=== PATIENT | male | born 1965 | race Caucasian/White ===

== ENCOUNTER 2017-09-02 14:14 | Inpatient (IN) | payer MEDICARE ==
[~2017-09-02 14:14] MED LIST: ISOVUE-370 76%-LOCM 1 ML ONE
[2017-09-02] MEDS ORDERED: Fentanyl 100 MCG/2 ML VIAL ONE (14:48)
[2017-09-02] MEDS ORDERED: Ondansetron ODT 4 MG TAB ONE (14:48)
[2017-09-02] MEDS ORDERED: Lidocaine 2% Viscous Solution 20 ML, Aluminum & Magnesium Hydroxide 30 ML, Donnatal Eli... SSW SCH (15:15)
[2017-09-02 15:34] LABS: Troponin I 0.023 ng/mL (< 0.028)
--- NOTE | 2017-09-02 16:52 | CT ---
CT ANGIO OF CHEST PERFORMED WITH INTRAVENOUS CONTRAST ENHANCEMENT WITH 3D RECONSTRUCTIONS: 09/02/17 HISTORY: Chest pain since 3 this morning. Elevated troponin. History of hypertension. COMPARISON: 03/01/16 study. Lungs show some linear change in both bases consistent with some atelectasis. No pulmonary nodules or pleural effusions. No significant mediastinal or hilar adenopathy. The thoracic aorta is normal in caliber. There are co ronary artery calcifications seen. There is fair pulmonary artery opacification. Small peripheral emboli are not excluded on the basis o f this exam but no CT evidence for pulmonary embolus. The visualized liver parenchyma has a slightly nodular appearance suggesting cirrhotic change and mat ws diffuse fatty changes. The spleen is within normal limits. Gallstones are noted within a mildly di stended gallbladder. Renal cysts are noted. There is one partially visualized lesion involving the mid pole region of the right kidney. It has CT Hounsfield unit numbers that are higher than typical for a cyst at 37 Hounsfield units and measures 3.5 cm in size. However, in reviewing an 12/23/15 study, it is a stable size as compared to that stud y and probably represents a cyst with debris. IMPRESSION: 1. No CT evidence for pulmonary embolus. 2. Linear atelectasis in the lung bases. 3. Fatty changes of a cirrhotic liver. 4. Mildly distended gallbladder with gallstones. POS: MARY KATE
[2017-09-02] MEDS ORDERED: Pantoprazole 40 MG VIAL ONE (18:19)
[2017-09-02] MEDS ORDERED: Promethazine HCl 25 MG/ML VIAL ONE (18:19)
--- NOTE | 2017-09-02 18:25 | ULT ---
RIGHT UPPER QUADRANT ULTRASOUND 09/02/17 HISTORY: Chest pain. COMPARISON: 03/02/16. FINDINGS: The liver is enlarged measuring 18.3 cm in length. The liver demonstrates diffuse increased echogenic ity most likely attributable to diffuse fatty infiltration. This does limit evaluation of the hepatic parenchyma. There is echogenic material seen dependently within the gallbladder lumen probably related to small a mount of gallbladder sludge. Echogenic material with posterior shadowing is also present likely relat ed to calculi within the region of gallbladder sludge. The common duct is not definitively visualized . The pancreas is completely obscured by bowel gas. The right kidney is not well imaged on this examination. However, there are two separate anechoic str uctures seen within the right kidney, largest in the superior pole also noted on prior ultrasound exa mination demonstrating characteristics most compatible with a renal cyst measuring 8.1 cm. There is a n additional cystic lesion at the mid portion of the right kidney which cannot be characterized as a simple cyst and measures 4.5 cm in maximal dimensions. This cystic structure has internal echogenic m aterial and suggestion of septations. However, this cystic lesion has been stable in size when dating back to a prior study on 12/23/15 and may represent a cyst with debris. The remainder of the kidney is not well evaluated, although no hydronephrosis is appreciated. IMPRESSION: 1. Hepatomegaly with diffuse fatty infiltration of the liver. There is limited evaluation of the hepatic parenchyma. 2. Cholelithiasis and gallbladder sludge. Common duct is not well seen on this exam. 3. Superior pole right renal cyst with complicated cystic lesion in the mid portion right kidney . This may represent a cyst with debris. Although this is not consistent with a simple cyst, the size of this cystic lesion is stable compared to CTA of the abdomen on 12/23/15. However, nonemergent MRI abdomen with and without IV contrast may be helpful to further evaluate this complicated cystic lesi on. POS: MIKI
[2017-09-02] MEDS ORDERED: Lorazepam 1 MG TAB PO PRN (22:57)
[2017-09-02] MEDS ORDERED: Acetaminophen 325 MG TAB PO PRN (22:57)
[2017-09-02] MEDS ORDERED: Mag-Al 1200 mg/1200 mg/30 ML UDCUP PO PRN (22:57)
[2017-09-02] MEDS ORDERED: Senokot 8.6 MG TAB PO PRN ×2 (22:57)
[2017-09-02] MEDS ORDERED: cloNIDine 0.1 MG TAB PO PRN (22:57)
[2017-09-02] MEDS ORDERED: Bisacodyl 5 MG TAB PO PRN ×2 (22:57)
[2017-09-02] MEDS ORDERED: Lorazepam 2 MG/ML VIAL SLOW IVP PRN (22:57)
[2017-09-02] MEDS ORDERED: Ondansetron HCl/PF 4 MG/2 ML Vial IVP PRN ×2 (22:57)
[2017-09-02] MEDS ORDERED: Diabetic Tussin 200 MG/10 ML UDCUP PO PRN (22:57)
[2017-09-02] MEDS ORDERED: Loratadine 10 MG TAB PO PRN (22:57)
[2017-09-02] MEDS ORDERED: HYDROcodone/Acetaminophen 5/325 mg Tablet PO PRN (22:57)
[2017-09-02] MEDS ORDERED: Nitroglycerin 0.4 MG TAB (25 Tab Bottle) SL PRN (22:57)
[2017-09-02] MEDS ORDERED: Benzonatate 100 MG CAP PO PRN (22:57)
[2017-09-02] MEDS ORDERED: hydrALAZINE 20 MG/ML VIAL SLOW IVP PRN (22:57)
[2017-09-02] MEDS ORDERED: hydrALAZINE 25 MG TAB PO SCH (23:15)
[2017-09-02] MEDS ORDERED: Topiramate 100 MG TAB PO SCH (23:15)
[2017-09-02] MEDS: Multivitamins, Adult 10 ML, Folic Acid 1 MG, Thiamine HCl 100 MG in Dextrose 5 %-0.45 %... IV SCH (23:42)
--- NOTE | 2017-09-03 01:10 | HP ---
DATE OF ADMISSION: 09/02/2017 The patient was seen prior to midnight. PRIMARY CARE PHYSICIAN: Dr. Turpin CHIEF COMPLAINT: Abdominal pain. Please note that the patient did not have chest pain as recorded in the emergency room records. HISTORY OF PRESENT ILLNESS: Mr. Weaver reports that he has been feeling fine up until early this morning. He had a big [place] meal with his brother yesterday night prior to bed, and this morning, he was woken up at around 3:00 with sharp pain in the epigastrium, which travels around his abdomen a nd went to his back. It radiated upwards to his chest area as well. He did not have any nausea or v omiting with it. He did not have any diarrhea. He denies any fever, chills, or any other recent sym ptoms. He denies any shortness of breath. He denies any left-sided chest discomfort. He denies any arm or jaw claudication or arm paraesthesias. He denies similar symptoms in the past. He presented to the [place] emergency room with these symptoms and underwent a general workup. He was quite hypertensive over there with a blood pressure of 189/150 with a pulse of 90. He was afe brile. A 12-lead EKG done there was unremarkable. Chest x-ray was negative for any infiltrate or ed raymond. He received morphine, aspirin, transdermal nitroglycerin and morphine again and Ativan and was transferred to our facility for further workup for "chest pain." In our emergency room, he was found to have an elevated D-dimer, so underwent a CT angio of his chest . It was negative for PE. It did suggest possibility of gallstone, so he underwent abdominal ultras ound, which showed cholelithiasis as well as gallbladder sludge. He was found to be tender to right upper quadrant. He is now being admitted for further workup. The patient chews tobacco and he is al most a daily drinker of what he says is "a fifth of vodka." He drank last night before going to bed, and also this morning when he was having abdominal pain, he tried to drink, but had to stop because it made his pain worse. PAST MEDICAL HISTORY: 1. Alcohol abuse. 2. History of cerebrovascular accident in 2013. 3. History of brain aneurysm. 4. Hypertension. 5. Constipation. PAST SURGICAL HISTORY: 1. Right shoulder repair. 2. History of bilateral knee surgery. ALLERGIES: No known medication allergies. FAMILY HISTORY: Significant for diabetes in his father and multiple members with heart disease. His brother also had history of atrial fibrillation. His mother has history of coronary artery disease. SOCIAL HISTORY: He drinks on a daily basis. Sometimes he drinks more when he has money. He chews t obacco, but denies any drug abuse. CURRENT MEDICATIONS: Include hydralazine 25 mg p.o. b.i.d., Topamax 200 mg p.o. b.i.d., Flomax 0.4 m g daily, finasteride 5 mg daily, aspirin 81 mg daily, and amlodipine/benazepril 1 capsule daily. REVIEW OF SYSTEMS: A 12-point review of system is done, which is negative except for those mentioned in the history and physical. LABORATORY EXAMINATION: His CBC shows hemoglobin of 13.8, otherwise unremarkable. Neutrophils are e levated to 90% with normal WBC. D-dimer 0.60. His serum chemistries are rather unremarkable except for bicarbonate of 16 and chloride of 110. CK-MB 3.8. Troponin normal at 0.020. BNP normal at 40. His drug screen is positive for benzodiazepines and opiates, otherwise unremarkable. Plasma alcohol level is less than 10. Twelve-lead EKG, by my review, shows normal sinus rhythm without any acute S T- or T-wave changes. Chest x-ray, by my review, has no evidence to suggest infiltrate, edema, or ef fusion. CT angio is negative for pulmonary embolism. Abdominal ultrasound shows gallbladder stones and possibly sludge as well as hepatomegaly with diffuse fatty infiltration of the liver. PHYSICAL EXAMINATION: VITAL SIGNS: Most recent vital signs, temperature 99.1, pulse of 95, blood pressure of 137/94, respi rations 18, saturating 92% on room air. GENERAL EXAMINATION: The patient appears confused and somnolent, and honestly, he appears intoxicate d, but otherwise in no acute distress. He is still able to answer the questions completely and follo w simple directions, though a little bit slow with tangential thinking. HEENT EXAMINATION: Mucous membrane is slightly dry. No oropharyngeal exudate or erythema. Head is normocephalic, atraumatic. Pupils equal, reactive to light and accommodation. Extraocular movement intact. NECK: Supple without any lymphadenopathy, JVD, or bruit. CHEST: Clear to auscultation without any wheezing, rales, or rhonchi. HEART: Rate and rhythm is regular without any murmur, rubs, or gallops. ABDOMEN: Tender to palpation diffusely in the upper quadrants, left and right, and the epigastric re gion mildly as well. No rebound guarding or rigidity. It appears soft. EXTREMITIES: Free of any cyanosis, clubbing, or edema. NEUROLOGICAL EXAMINATION: Nonfocal. SKIN: Free of any rashes or bruises. Feels warm and dry to touch. PSYCHIATRIC: Normal affect. IMPRESSION AND PLAN: 1. Abdominal pain, radiating to his chest. Most likely, it is a gallbladder colic. I have ordered a stat lipase and amylase, which have turned back normal. Does not appear to be pancreatitis at this time. We will start him on a banana bag given his history of alcohol abuse and request consultation with General Surgery in the morning for possible cholecystectomy. No evidence to suggest cholecysti tis at this time, however. If necessary, we can perform a HIDA scan in the morning. He will be kept n.p.o. after breakfast in case he needs to have surgery tomorrow. At this time, continue symptomati c and supportive care. Serial cardiac enzymes are done and have been negative. He had a normal stre ss test last year in February as well. Possibility of the pain being cardiac is very low. We will co ntinue with his daily dose of aspirin for now. 2. Hypertension, currently well controlled. Restart his hydralazine as well as amlodipine and benaz epril. 3. History of seizure disorder. Resume his Topamax. 4. Alcohol abuse. We will start him on banana bag and use p.r.n. IV and oral Ativan for any withdra wal symptoms. 5. Deep venous thrombosis and gastrointestinal prophylaxis. DISPOSITION: Mr. Weaver is currently being admitted to the hospital for workup of abdominal pain. Estimated length of stay is less than 2 midnights at this time. If he does undergo surgery, he can be changed to inpatient. Further management will depend upon his clinical course.
[2017-09-03 01:19] LABS: Troponin I 0.018 ng/mL (< 0.028)
[2017-09-03 05:43] LABS: Anion Gap 9 mmol/L (10-20); BUN (Urea Nitrogen) 12 mg/dL (8.4-25.7); Calc. Creatinine Clearance 136 mL/min (70-130); Calcium 8.3 mg/dL (7.8-10.44); Carbon Dioxide 19 mmol/L (22-29); Chloride 109 mmol/L (98-107); Estimated GFR-MDRD Greater than 90; Glucose 125 mg/dL (70-105); Potassium 3.1 mmol/L (3.5-5.1); Sodium 134 mmol/L (136-145)
[2017-09-03 06:14] LABS: Band 7 % (5-11); Hemoglobin 11.9 g/dL (14.0-18.0); Lymphocytes 14 % (21-51); MDiff Complete? YES; Mean Corpuscular HGB CONC 32.9 g/dL (32.0-36.0); Mean Corpuscular Hemoglobin 28.5 pg (27.0-31.0); Mean Corpuscular Volume 86.5 fL (78.0-98.0); Mean Platelet Volume 7.5 fL (7.4-10.4); Metamyelocyte 2 % (0-0); Monocytes 12 % (0-10); Neutrophil 65 % (42-75); PLT Morphology Comment Appears Adequate; Platelet Count 154 thou/uL (130-400); RBC Distribution Width 14.4 % (11.5-14.5); Red Blood Cell (RBC) Count 4.18 mill/uL (4.70-6.10); White Blood Cell (WBC) Count 5.7 thou/uL (4.8-10.8)
[2017-09-03] MEDS: Finasteride 5 MG TAB PO SCH (09:05)
[2017-09-03] MEDS: Amlodipine 5 mg/Benazepril 10 mg CAP PO SCH (09:05)
[2017-09-03] MEDS: hydrALAZINE 25 MG TAB PO SCH ×2 (09:06→20:08)
[2017-09-03] MEDS: Topiramate 100 MG TAB PO SCH ×2 (09:06→20:08)
[2017-09-03] MEDS: Tamsulosin HCl 0.4 MG CAP PO SCH (09:06)
--- NOTE | 2017-09-03 14:22 | PDOC.PN ---
- Subjective Encounter Start Date: 09/03/17 Encounter Start Time: 12:30 -: old records requested/rev Pt seen and exmained, chart reviewed in its entirety, this is my first visit with this patient abd pain better, history rteviewed. cardiac markers negative, story more gstrointestinal, surgery consulted. No F/c, no N/V/D/C, no CP or SOB no abd pain since admit all systems reviewed and neg x as per HPI - Objective MAR Reviewed: Yes Vital Signs & Weight: Vital Signs (12 hours) Temp Pulse Resp BP BP Pulse Ox 09/03/17 11:32 97 09/03/17 11:13 98.5 F 72 16 104/75 95 09/03/17 09:06 78 114/78 09/03/17 07:30 98.9 F 86 18 09/03/17 07:25 99.3 F 78 16 95 09/03/17 06:11 94 L 09/03/17 04:40 98.9 F 86 18 110/70 90 L Weight Weight 203 lb 11.2 oz I&O: 09/02/17 09/03/17 09/04/17 06:59 06:59 06:59 Intake Total 1000 Output Total 500 Balance 500 Result Diagrams: 09/03/17 05:04 09/03/17 05:04 Radiology Reviewed by me: Yes EKG Reviewed by me: Yes Phys Exam - Physical Examination Constitutional: NAD HEENT: PERRLA, moist MMs, sclera anicteric, oral pharynx no lesions Neck: no nodes, no JVD, supple, full ROM Respiratory: no wheezing, no rales, no rhonchi, clear to auscultation bilateral Cardiovascular: RRR, no significant murmur, no rub Gastrointestinal: soft, non-tender, no distention, positive bowel sounds Musculoskeletal: no edema, pulses present Neurological: non-focal, normal sensation, moves all 4 limbs Lymphatic: no nodes Psychiatric: normal affect, A&O x 3 Skin: no rash, normal turgor, cap refill <2 seconds Dx/Plan (1) Abdominal pain Code(s): R10.9 - UNSPECIFIED ABDOMINAL PAIN Status: Acute Qualifiers: Abdominal location: epigastric Qualified Code(s): R10.13 - Epigastric pain Comment: radiates to back, cholelithiasis, surgery consulted, follow up on their findings and opinion (2) Cholelithiasis Code(s): K80.20 - CALCULUS OF GALLBLADDER W/O CHOLECYSTITIS W/O OBSTRUCTION Status: Acute Qualifiers: Cholelithiasis location: gallbladder Cholecystitis presence: without cholecystitis Biliary obstruction: without biliary obstruction Qualified Code(s): K80.20 - Calculus of gallbladder without cholecystitis without obstruction (3) HTN (hypertension) Code(s): I10 - ESSENTIAL (PRIMARY) HYPERTENSION Status: Chronic Qualifiers: Hypertension type: essential hypertension Qualified Code(s): I10 - Essential (primary) hypertension (4) ETOH abuse Code(s): F10.10 - ALCOHOL ABUSE, UNCOMPLICATED Status: Chronic - Plan cont current plan of care, out of bed/ambulate * .
[2017-09-03 14:50] LABS: ALT (SGPT) 114 U/L (8-55); AST (SGOT) 127 U/L (5-34); Albumin 3.6 g/dL (3.5-5.0); Alkaline Phosphatase 57 U/L (40-150); Bilirubin, Direct 1.1 mg/dL (0.1-0.3); Protein, Total 5.8 g/dL (6.0-8.3)
[2017-09-03] MEDS: Enoxaparin Sodium 40 MG/0.4 ML SYRINGE SC SCH (15:00)
[2017-09-03] MEDS ORDERED: Pantoprazole 40 MG VIAL IVP SCH (21:45)
[2017-09-04] MEDS: Multivitamins, Adult 10 ML, Folic Acid 1 MG, Thiamine HCl 100 MG in Dextrose 5 %-0.45 %... IV SCH (00:16)
[2017-09-04] MEDS ORDERED: CEFAZOLIN/Water 2 GM/20 ML SYRINGE SLOW IVP SCH (04:00)
--- NOTE | 2017-09-04 05:18 | CON ---
DATE OF CONSULTATION: 09/04/2017 REASON FOR CONSULTATION: Cholelithiasis and cholecystitis. HISTORY OF PRESENT ILLNESS: Mr. Weaver is a 52-year-old man who presented to the emergency room w ith epigastric pain radiating around both sides to his back. He described it as a squeezing type of pain which came on in the cheese specialist hours after he had eaten [place] food the night before. He t ried multiple different positions and activities to ease the pain, but it was persistent and severe, so he ended up coming into the hospital where he was placed under observation for rule out a cardiac disease. He had a very minimally elevated troponin in the outside ER, but multiple troponins since [facility] admission has been negative even while his pain was persistent. His pain did eventually go away a lthough he still has twinges. Other causes for his pain were investigated. An abdominal ultrasound was obtained, which showed echogenic material in the lumen consistent with sludge as well as some sha dowing felt to represent calculi. He did not have any pericholecystic fluid or wall thickening. The common duct was not able to be visualized. He had a CT angio of the chest to rule out dissection or PE. This did not show any significant problems in the lung, but he was noted to have a nodular appe arance to his liver consistent with cirrhosis and gallstones were also noted within the distended gal lbladder. PAST MEDICAL HISTORY: Fairly heavy alcohol use, which has escalated somewhat since his usp fr 9GAG. He had a stroke in 2013 and has a brain aneurysm and a seizure disorder resulting from that. He also has hypertension. PAST SURGICAL HISTORY: Bilateral shoulder repairs, tonsillectomy, and knee surgery. ALLERGIES: He has no known drug allergies. MEDICATIONS: He takes hydralazine, Topamax, Flomax, finasteride, aspirin and amlodipine/benazepril. REVIEW OF SYSTEMS: Ten-system review of systems is negative except per HPI. The patient did have so me shortness of breath and the pain was at its most severe, otherwise denies dyspnea on exertion or e xertional angina. LABORATORY DATA: White count is normal at 5.7, hematocrit 36.1, platelets 154. D-dimer was 0.6. El ectrolytes are not completely normal, but not terribly troublesome. He does have mild elevation in h is LFTs with a bilirubin of 2 with a direct component of 1.1. AST and ALT are 127 on 114. His album in is normal at 3.6. PHYSICAL EXAMINATION: VITAL SIGNS: Temperature, patient has been afebrile since his admission. Heart rate 79, respiration s 14, 92% saturated on room air, blood pressure 110/74. GENERAL: Reveals a healthy-appearing man, in no acute distress. He is not flushed or toxic in [facility]. He is not jaundiced or icteric. HEENT: Unremarkable. NECK: Supple, without lymphadenopathy or thyroid nodules. HEART: Regular in its rate and rhythm without murmurs, rubs or gallops. LUNGS: Clear to auscultation bilaterally. ABDOMEN: Soft, nontender and nondistended, although he does have slight tenderness in right upper qu adrant with Decker maneuver. No palpable masses or hernias. EXTREMITIES: Warm and well perfused without edema. NEUROLOGIC: No focal deficits. PSYCHIATRIC: Alert, oriented, and appropriate. ASSESSMENT AND PLAN: Epigastric pain, likely due to cholelithiasis and cholecystitis. This has slow ly eased off since his admission to the hospital, but he would like to undergo laparoscopic cholecyst ectomy to prevent further episodes since his bile duct was not well seen on ultrasound and his LFTs a re mildly elevated. I will plan to proceed with laparoscopic cholecystectomy with cholangiogram to e valuate for possible common duct obstruction. The procedure of laparoscopic cholecystectomy and its inherent risks were discussed in detail with the patient. These risks include but are not limited to bleeding, infection, risks of anesthesia, damage to nearby structures, need for open surgery, and ne ed for other procedures. He understands that he is at somewhat higher risk for surgery due to his re cent finding of suspected cirrhosis as well as a seizure disorder. However, his cirrhosis appears to be early and he does not have any history of coagulopathy and he definitely has gallstones which are most likely symptomatic, so I have recommended that we proceed with laparoscopic cholecystectomy lawrence pite . Antibiotics were ordered for apron operator to the operating room and he has been made n.p.o. a fter midnight.
[2017-09-04 05:55] LABS: ALT (SGPT) 79 U/L (8-55); AST (SGOT) 54 U/L (5-34); Albumin 3.3 g/dL (3.5-5.0); Alkaline Phosphatase 54 U/L (40-150); Anion Gap 8 mmol/L (10-20); BUN (Urea Nitrogen) 10 mg/dL (8.4-25.7); Bilirubin, Total 0.7 mg/dL (0.2-1.2); Calc. Creatinine Clearance 136 mL/min (70-130); Calcium 8.2 mg/dL (7.8-10.44); Carbon Dioxide 18 mmol/L (22-29); Chloride 111 mmol/L (98-107); Estimated GFR-MDRD Greater than 90; Globulin 2.2 g/dL (2.4-3.5); Glucose 130 mg/dL (70-105); Lipase 37 U/L (8-78); Magnesium 1.9 mg/dL (1.6-2.6); Potassium 3.3 mmol/L (3.5-5.1); Protein, Total 5.5 g/dL (6.0-8.3); Sodium 134 mmol/L (136-145)
[2017-09-04 06:28] LABS: INR-International Normal Ratio 1.2; PTT 38.8 SEC (22.9-36.1); Prothrombin Time 15.3 SEC (12.0-14.7)
[2017-09-04 06:50] LABS: Band 1 % (5-11); Eosinophils 2 % (0-10); Hemoglobin 11.7 g/dL (14.0-18.0); Hypochromia SLIGHT = 6-15 cells (100X) (0-5/hpf); Lymphocytes 20 % (21-51); MDiff Complete? YES; Mean Corpuscular Hemoglobin 29.7 pg (27.0-31.0); Mean Corpuscular Volume 87.3 fL (78.0-98.0); Mean Platelet Volume 7.8 fL (7.4-10.4); Monocytes 11 % (0-10); Neutrophil 66 % (42-75); PLT Morphology Comment Appears Adequate; Platelet Count 133 thou/uL (130-400); RBC Distribution Width 14.4 % (11.5-14.5); Red Blood Cell (RBC) Count 3.92 mill/uL (4.70-6.10); White Blood Cell (WBC) Count 4.8 thou/uL (4.8-10.8)
[2017-09-04] MEDS ORDERED: Iothalamate Meglumine 60% 50 ML VIAL FS ONE (08:57)
[2017-09-04] MEDS ORDERED: Bupivacaine/Epinephrine 0.25% 30 ML VIAL ONE (08:57)
[2017-09-04] MEDS ORDERED: Fentanyl 100 MCG/2 ML VIAL ONE (09:37)
[2017-09-04] MEDS ORDERED: Midazolam HCl 2 mg/2 ml Vial ONE (09:37)
[2017-09-04] MEDS ORDERED: HYDROmorphone 0.5 MG/0.5 ML SYRINGE ONE (09:37)
[2017-09-04] MEDS ORDERED: Promethazine HCl 25 MG/ML VIAL IM PRN (10:34)
[2017-09-04] MEDS ORDERED: Ondansetron HCl/PF 4 MG/2 ML Vial IVP PRN (10:34)
[2017-09-04] MEDS ORDERED: Promethazine HCl 25 MG/ML VIAL SLOW IVP PRN (10:34)
[2017-09-04] MEDS ORDERED: HYDROmorphone 2 MG/ML VIAL SLOW IVP PRN (10:34)
[2017-09-04] MEDS ORDERED: Morphine 4 MG/ML VIAL ONE (10:53)
[2017-09-04] MEDS: Enoxaparin Sodium 40 MG/0.4 ML SYRINGE SC SCH (11:26)
[2017-09-04] MEDS ORDERED: Ibuprofen 200 MG TAB PO PRN ×3 (12:59→13:01)
[2017-09-04] MEDS ORDERED: HYDROcodone/Acetaminophen 10/325 mg Tablet PO PRN (12:59)
[2017-09-04] MEDS ORDERED: traMADol HCl 50 MG TAB PO PRN ×2 (13:01)
[2017-09-04] MEDS ORDERED: Promethazine 25 MG TAB PO PRN ×2 (13:02)
[2017-09-04] MEDS: Pantoprazole 40 MG VIAL IVP SCH ×2 (13:04→20:41)
[2017-09-04] MEDS: Topiramate 100 MG TAB PO SCH ×2 (13:05→20:41)
[2017-09-04] MEDS: Potassium Chloride 20 MEQ in Premix Bag 1 BAG IVPB SCH ×2 (13:05→18:46)
[2017-09-04] MEDS: Amlodipine 5 mg/Benazepril 10 mg CAP PO SCH (13:05)
[2017-09-04] MEDS: Tamsulosin HCl 0.4 MG CAP PO SCH (13:06)
[2017-09-04] MEDS: Finasteride 5 MG TAB PO SCH (13:06)
[2017-09-04] MEDS: hydrALAZINE 25 MG TAB PO SCH ×2 (13:06→20:49)
--- NOTE | 2017-09-04 14:11 | PDOC.PN ---
- Subjective Encounter Start Date: 09/04/17 Encounter Start Time: 14:09 Subjective: s/p lap leslee.feels well. no Abd pain now.no chest pain/ -: care discussed w Mom at bedside - Objective MAR Reviewed: Yes Vital Signs & Weight: Vital Signs (12 hours) Temp Pulse Resp BP Pulse Ox 09/04/17 13:10 79 14 119/87 95 09/04/17 12:40 98.6 F 84 12 146/88 H 92 L Result Diagrams: 09/04/17 05:09 09/04/17 05:09 Additional Labs: Laboratory Tests 09/03/17 09/04/17 05:04 05:09 AST 127 H 54 H ALT 114 H 79 H labs reviewed Phys Exam - Physical Examination HEENT: PERRLA, moist MMs, sclera anicteric, oral pharynx no lesions Neck: no nodes, no JVD, supple, full ROM Respiratory: no wheezing, no rales, no rhonchi, clear to auscultation bilateral Cardiovascular: RRR, no significant murmur, no rub Gastrointestinal: soft, non-tender, no distention, positive bowel sounds surgical site clean Musculoskeletal: no edema, pulses present Neurological: non-focal, normal sensation, moves all 4 limbs Psychiatric: normal affect, A&O x 3 Skin: no rash Dx/Plan (1) Abdominal pain Code(s): R10.9 - UNSPECIFIED ABDOMINAL PAIN Status: Acute Qualifiers: Abdominal location: epigastric Qualified Code(s): R10.13 - Epigastric pain Comment: radiates to back, cholelithiasis, surgery consulted, follow up on their findings and opinion (2) Cholelithiasis Code(s): K80.20 - CALCULUS OF GALLBLADDER W/O CHOLECYSTITIS W/O OBSTRUCTION Status: Acute Qualifiers: Cholelithiasis location: gallbladder Cholecystitis presence: without cholecystitis Biliary obstruction: without biliary obstruction Qualified Code(s): K80.20 - Calculus of gallbladder without cholecystitis without obstruction Comment: s/p Lap leslee. Report pending (3) HTN (hypertension) Code(s): I10 - ESSENTIAL (PRIMARY) HYPERTENSION Status: Chronic Qualifiers: Hypertension type: essential hypertension Qualified Code(s): I10 - Essential (primary) hypertension (4) Seizure Status: Acute (5) ETOH abuse Code(s): F10.10 - ALCOHOL ABUSE, UNCOMPLICATED Status: Chronic - Plan plan discussed w/ family, out of bed/ambulate, DVT proph w/SCDs discussed w EHR-Inpt appropriate. will change -: cont supportive & symptomatic care -: Home in am if stable. -: ASE protocol.Counselling done * . Review of Systems - Review of Systems Constitutional: negative: fever, chills, sweats, weakness, malaise, other Respiratory: negative: Cough, Dry, Shortness of Breath, Hemoptysis, SOB with Excertion, Pleuritic Pain, Sputum, Wheezing Cardiovascular: negative: chest pain, palpitations, orthopnea, paroxysmal nocturnal dyspnea, edema, light headedness, other Gastrointestinal: negative: Nausea, Vomiting, Abdominal Pain, Diarrhea, Constipation, Melena, Hematochezia, Other Genitourinary: negative: Dysuria, Frequency, Incontinence, Hematuria, Retention , Other Musculoskeletal: negative: Neck Pain, Shoulder Pain, Arm Pain, Back Pain, Hand Pain, Leg Pain, Foot Pain, Other Skin: negative: Rash, Lesions, Grey, Bruising, Other Neurological: negative: Weakness, Numbness, Incoordination, Change in Speech, Confusion, Seizures, Other - Medications/Allergies Allergies/Adverse Reactions: Allergies Allergy/AdvReac Type Severity Reaction Status Date / Time No Known Allergies Allergy Verified 09/02/17 22:31 Medications: Current Medications Acetaminophen (Tylenol) 650 mg PO Q4H PRN PRN Reason: Headache/Fever or Pain Hydrocodone Bitart/Acetaminophen ([place] 5/325) 1 tab PO Q4H PRN PRN Reason: Moderate Pain (4-6) Hydrocodone Bitart/Acetaminophen ([place] 10/325) 1 tab PO Q4H PRN PRN Reason: Pain Al Hydroxide/Mg Hydroxide (Maalox) 30 ml PO Q6H PRN PRN Reason: Heartburn or Indigestion Amlodipine/Benazepril HCl (Lotrel 5/10) 2 cap PO DAILY [facility] Last Admin: 09/04/17 13:05 Dose: 2 cap Aspirin (Aspirin Chewable) 81 mg PO DAILY [facility] Last Admin: 09/04/17 13:06 Dose: 81 mg Benzonatate (Tessalon) 100 mg PO Q4H PRN PRN Reason: Cough Bisacodyl (Dulcolax) 10 mg PO DAILYPRN PRN PRN Reason: Constipation Bisacodyl (Dulcolax) 10 mg PO DAILYPRN PRN PRN Reason: Constipation Clonidine (Catapres) 0.1 mg PO Q4H PRN PRN Reason: Systolic BP > 160 Enoxaparin Sodium (Lovenox) 40 mg SC 0900 [facility] Last Admin: 09/04/17 11:26 Dose: Not Given Finasteride (Proscar) 5 mg PO DAILY [facility] Last Admin: 09/04/17 13:06 Dose: 5 mg Guaifenesin (Robitussin Sf) 200 mg PO Q4H PRN PRN Reason: Cough Hydralazine HCl (Apresoline) 25 mg PO BID [facility] Last Admin: 09/04/17 13:06 Dose: 25 mg Hydralazine HCl (Apresoline) 10 mg SLOW IVP Q4H PRN PRN Reason: Systolic BP > 170 Multivitamins 10 ml/ Folic Acid 1 mg/ Thiamine HCl 100 mg / Dextrose/Sodium Chloride 1,011.2 mls @ 75 mls/hr IV Q24HR@2359 [facility] Last Admin: 09/04/17 00:16 Dose: 1,011.2 mls Ibuprofen (Motrin) 200 mg PO Q6H PRN PRN Reason: PAIN 1-2 Ibuprofen (Motrin) 400 mg PO Q6H PRN PRN Reason: PAIN 3-4 Ibuprofen (Motrin) 600 mg PO Q6H PRN PRN Reason: PAIN 6-7 Loratadine (Claritin) 10 mg PO DAILYPRN PRN PRN Reason: Sinus Symptoms Lorazepam (Ativan) 1 mg PO Q4H PRN PRN Reason: Anxiety/Agitation Lorazepam (Ativan) 1 mg SLOW IVP Q4H PRN PRN Reason: Anxiety/Agitation Nitroglycerin (Nitrostat) 0.4 mg SL Q5MIN PRN PRN Reason: Chest Pain Ondansetron HCl (Zofran) 4 mg IVP Q6H PRN PRN Reason: Nausea/Vomiting Ondansetron HCl (Zofran) 4 mg IVP Q6H PRN PRN Reason: Nausea/Vomiting Pantoprazole Sodium (Protonix) 40 mg IVP Q12HR [facility] Last Admin: 09/04/17 13:04 Dose: 40 mg Promethazine HCl (Phenergan) 25 mg PO Q4H PRN PRN Reason: NAUSEA SEVERE Promethazine HCl (Phenergan) 12.5 mg PO Q4H PRN PRN Reason: Nausea MILD TO MODERATE Senna (Senokot) 2 tab PO HSPRN PRN PRN Reason: Constipation Senna (Senokot) 2 tab PO HSPRN PRN PRN Reason: Constipation Sodium Chloride (Flush - Normal Saline) 10 ml IVF Q12HR [facility] Last Admin: 09/04/17 13:08 Dose: 10 ml Sodium Chloride (Flush - Normal Saline) 10 ml IVF PRN PRN PRN Reason: Saline Flush Tamsulosin HCl (Flomax) 0.4 mg PO DAILY [facility] Last Admin: 09/04/17 13:06 Dose: 0.4 mg Topiramate (Topamax) 200 mg PO BID [facility] Last Admin: 09/04/17 13:05 Dose: 200 mg Tramadol HCl (Ultram) 50 mg PO Q4H PRN PRN Reason: PAIN SCALE 8-9 Tramadol HCl (Ultram) 100 mg PO Q4H PRN PRN Reason: PAIN SCALE 10
--- NOTE | 2017-09-04 14:39 | RAD ---
OPERATIVE CHOLANGIOGRAM: Date: 09/04/17 HISTORY: Intraoperative films. FINDINGS: A total of three images are presented for interpretation and show filling of a nondilated common bile duct with emptying into the duodenum. No filling defects visualized. IMPRESSION: Unremarkable operative cholangiogram. POS: MARY KATE
[2017-09-04] MEDS ORDERED: PROPOFOL 200 MG/20 ML VIAL ONE (14:43)
[2017-09-04] MEDS ORDERED: Lidocaine 1% PF 5 ML VIAL ONE (14:43)
[2017-09-04] MEDS ORDERED: Ondansetron HCl/PF 4 MG/2 ML Vial ONE (14:43)
[2017-09-04] MEDS ORDERED: Ketorolac Tromethamine 30 MG/ML VIAL ONE (14:43)
[2017-09-04] MEDS ORDERED: Dexamethasone 20 MG/5 ML VIAL ONE (14:43)
[2017-09-04] MEDS ORDERED: Potassium Chloride 20 MEQ TAB PO SCH (19:30)
[2017-09-05 06:11] LABS: Anion Gap 9 mmol/L (10-20); BUN (Urea Nitrogen) 8 mg/dL (8.4-25.7); Calc. Creatinine Clearance 138 mL/min (70-130); Calcium 8.4 mg/dL (7.8-10.44); Carbon Dioxide 17 mmol/L (22-29); Chloride 113 mmol/L (98-107); Estimated GFR-MDRD Greater than 90; Glucose 112 mg/dL (70-105); Sodium 135 mmol/L (136-145)
[2017-09-05 06:17] LABS: ALT (SGPT) 101 U/L (8-55); AST (SGOT) 93 U/L (5-34); Albumin 3.3 g/dL (3.5-5.0); Alkaline Phosphatase 61 U/L (40-150); Bilirubin, Direct 0.5 mg/dL (0.1-0.3); Bilirubin, Total 0.8 mg/dL (0.2-1.2); Protein, Total 5.6 g/dL (6.0-8.3)
[2017-09-05] MEDS: Amlodipine 5 mg/Benazepril 10 mg CAP PO SCH (10:24)
[2017-09-05] MEDS: Topiramate 100 MG TAB PO SCH (10:25)
[2017-09-05] MEDS: hydrALAZINE 25 MG TAB PO SCH (10:25)
[2017-09-05] MEDS: Finasteride 5 MG TAB PO SCH (10:25)
[2017-09-05] MEDS: Enoxaparin Sodium 40 MG/0.4 ML SYRINGE SC SCH (10:26)
[2017-09-05] MEDS: Tamsulosin HCl 0.4 MG CAP PO SCH (10:26)
[2017-09-05] MEDS: Pantoprazole 40 MG VIAL IVP SCH (10:27)
[2017-09-05 11:57] VITALS: BP 135/90; TEMP 98.4
--- NOTE | 2017-09-05 23:19 | DIS ---
DATE OF ADMISSION: 09/03/2017 DATE OF DISCHARGE: 09/05/2017 CONDITION AT THE TIME OF DISCHARGE: Stable and improved. DISCHARGE DIAGNOSES: 1. Acute gallbladder colic secondary to cholelithiasis. 2. Cholelithiasis status post laparoscopic cholecystectomy. 3. Hypertension. 4. Seizure disorder. 5. Ongoing alcohol abuse. PRIMARY CARE PHYSICIAN: Olamide Turpin M.D. INHOUSE CONSULTATION: Dr. Smith for laparoscopic cholecystectomy. PROCEDURES DONE IN THE HOSPITAL: 1. Laparoscopic cholecystectomy as well as intraoperative cholangiogram which is unremarkable. 2. CT angio of the thorax upon presentation, which is negative for any pulmonary embolism. Abdomina l ultrasound which showed cholelithiasis, hepatomegaly with diffuse fatty infiltration of the liver. HISTORY OF PRESENTING ILLNESS: Mr. Weaver is a 52-year-old male with known history of heavy alcoh ol abuse as well as seizure disorder who presented to the emergency room with complaints of chest gil n versus abdominal pain. His CT scan of chest was done in the ER to rule out PE and it was negative for same. He was evaluated by myself and his history was most consistent with abdominal pain from ga llbladder issues. Abdominal ultrasound was done which showed cholelithiasis with gallbladder sludge and possible cholecystitis. General Surgery was consulted and they took him for cholecystectomy whic h was done yesterday on 09/04/2017. The patient was monitored overnight post-procedure and did very well. Extensive alcohol abuse counseling was done with the patient and he was told that he has been showing signs of fatty liver infiltration. He does have elevation of AST and ALT secondary to chronic alcoh ol abuse. Lipase and amylase were checked and were normal. As of this morning, he is hemodynamicall y stable and will be discharged back to follow up with primary care physician, Dr. Turpin. He wa s seen and examined prior to discharge. PHYSICAL EXAMINATION: VITAL SIGNS: This morning, temperature 98.4, pulse of 85, respirations 20, saturating 94% on room ai r, blood pressure 135/90. GENERAL: No acute distress, awake, alert, and oriented x3. CHEST: Clear to auscultation bilaterally. Rate and rhythm is regular. ABDOMEN: Mildly distended. Surgical site looks clean without any dehiscence or discharge. LABORATORY DATA: Discharge liver enzymes include bilirubin improved from 2.0-0.8, AST 93, ALT 101, n ormal alkaline phosphatase.
--- NOTE | 2017-09-07 22:09 | PDOC.OP ---
Operative Note - Operative Note Operative Note: PROCEDURE: Laparoscopic cholecystectomy with intraoperative cholangiogram SURGEON: Ilda Smith M.D. DATE OF PROCEDURE: 09/04/2017 PREOPERATIVE DIAGNOSIS: Cholelithiasis and cholecystitis, possible choledocholithiasis. POSTOPERATIVE DIAGNOSIS: Cholelithiasis and cholecystitis, cirrhosis. HISTORY: Patient with recent severe episode of epigastric pain radiating to his backand gallstones on imaging. LFTs are mildly elevated and there is a concern for cirrhosis based on nodularity of the liver but he does not have any coagulopathy and his albumin and bilirubin are unremarkable. Transaminases are mildly elevated. Recommendation was made to proceed with laparoscopic cholecystectomy with intraoperative cholangiogram. FINDINGS: Nodular liver consistent with cirrhosis. Acutely inflamed necrotic gallbladder with omental adhesions. PROCEDURE IN DETAIL: After informed consent was obtained and appropriate preoperative antibiotics were administered, the patient was taken to the operating room and placed in the supine position and general endotracheal anesthesia was administered. The stomach was decompressed with an OG tube and the abdomen was prepped and draped in standard sterile fashion. Local anesthesia was infused to the skin and subcutaneous tissues at the umbilical level. A transverse skin incision was made. The fascia was elevated and a Veress needle was placed into the abdominal cavity without difficulty. Opening pressure was less than 5 and carbon dioxide gas easily insufflated to an intra- abdominal pressure of 15, which the patient tolerated well. The Veress needle was withdrawn and a [place] port advanced under direct vision. The abdominal cavity was carefully examined. There was no evidence of Veress needle or of trocar injury. The liver was noted to bensistent with and the gallbladder was mostly obscured by omental adhesions but appeared very distended and inflamed . Local anesthesia was infused to the skin and subcutaneous tissues at the epigastric, right upper quadrant, and right lateral abdominal sites and trocars were placed under direct vision of the laparoscope. The fundus of the gallbladder was grasped and retracted superiorly, and the omental adhesion stripped inferiorly. These appeared to be filmy and acute in nature, but the gallbladder was very inflamed in nature and discolored, consistent with necrosis of the gallbladder wall. As the fundus was retracted upward to reveal the infundibulum, the gallbladder tore, revealing dark bile. Most of this was able to be suctioned out of the gallbladder, and the hole was grasped to prevent further spillage. The infundibulum was grasped and retracted laterally. The serosa was stripped inferiorly at the level of the neck of the gallbladder exposing the cystic duct and artery which were traced clearly to their insertion in the gallbladder. Throughout this process there was significant oozing from the gallbladder wall consistent with severe acute inflammation, but this was able to be controlled with electrocautery. The cystic duct andartery were dissected free circumferentially and the cystic duct was clipped at the level of the neck of the gallbladder. The cystic artery was clipped but not divided. An incision was made in the cystic duct inferior to the clip and the cystic duct was palpated withsome sludge expressed but no stones palpable. Clear bile was then seen to flow from the cystic duct incision. A cholangiogram catheter was introduced and placed into the cystic duct and secured with a clip. A cholangiogram was obtained which showed an adequate length of cystic duct. There was normal filling of the common bile duct with free flow of contrast into the duodenum. There was normal retrograde flow into the common hepatic duct beyond the level of the bifurcation without filling defects. The cholangiogram catheter was removed and the cystic duct clipped below the incision in the cystic duct. The cystic duct was divided between these clips and the previously placed clip. The cystic artery was clipped and divided between the previously placed clips. The gallbladder was then dissected free of the gallbladder bed using hook electrocautery. Although the gallbladder wall continued to ooze easily, there was no abnormal bleeding from the liver bed. Prior to complete removal of the gallbladder from the gallbladder bed, the area of the cystic duct and artery stumps was examined. The clips were in good position completely across these structures and there was no bleeding and no leakage of bile. The gallbladder was then placed into an EndoCatch bag and drawn out through the epigastric incision. The epigastric trocar was replaced and the operative site easily irrigated to clear. There was no significant bleeding or residual bile. Due to the appearance of the liver, the decision was made to perform a liver biopsy.Scissors were used to excise a small wedge of nodular liver from the anterior edge of the right lobe of the liver and this was removed with a stone forcep. The biopsy site was cauterized and hemostasis verified. As previously stated, there was no abnormal bleeding from the liver bed, but due to the severely inflamed nature of the gallbladder and the nodular cirrhotic appearance of the liver, Nette was placed to the liver bed and biopsy site as a precaution. The epigastric trocar was removed and the fascia closed under direct laparoscopic vision with a 0 Vicryl suture on a GraNee needle in a [id number] manner with excellent technical result. The right upper quadrant and right lateral abdominal trocars were removed and hemostasis verified. Carbon dioxide gas was allowed to desufflate through the umbilical trocar which was then removed. The skin incisions were closed with 4- 0 subcuticular Monocryl sutures and Dermabond dressings were placed. The patient was extubated and taken to the recovery room in good condition. There were no complications. ESTIMATED BLOOD LOSS: 100 mL. SPECIMEN : Gallbladder and contents, liver biopsy.
[2017-09-23] MEDS ORDERED: Pantoprazole 40 MG VIAL IVP SCH (09:00)
== END 2017-09-05 13:37 | disposition home or self-care (01) | DRG 419 ==
LOC: ERS 14:14 → ERHOLD 20:12 → 2SW 21:49 → OBSVTOIN 09-04 12:24
PROVIDERS: ADMIT Internal Medicine; ATTEND Internal Medicine
PROC: 0FT44ZZ Resection of Gallbladder, Percutaneous Endoscopic Approach (ICD-10-PCS; principal; 2017-09-04)
PROC: 0FB14ZX Excision of Right Lobe Liver, Percutaneous Endoscopic Approach, Diagnostic (ICD-10-PCS; 2017-09-04)
PROC: BF101ZZ Fluoroscopy of Bile Ducts using Low Osmolar Contrast (ICD-10-PCS; 2017-09-04)
DX: K80.10 Calculus of gallbladder with chronic cholecystitis without obstruction (principal); I10 Essential (primary) hypertension; G40.909 Epilepsy, unspecified, not intractable, without status epilepticus; K70.0 Alcoholic fatty liver; F10.10 Alcohol abuse, uncomplicated; Z86.73 Personal history of transient ischemic attack (TIA), and cerebral infarction without residual deficits; Z72.0 Tobacco use
CPT/HCPCS: 36415; 47532; 71275; 76705; 80048; 80053; 80076; 82150; 83690; 83735; 84484; 85025; 85379; 85610; 85730; 88304; 88307; 88313; 96365; 96375; A4216; C9113; J1100; J1170; J1650; J1885; J2001; J2250; J2270; J2405; J2550; J2704; J3010; J3411; J3480; J7042; Q0162; Q9961

== ENCOUNTER 2018-03-26 13:43 | Inpatient (IN) | payer MEDICARE ==
[2018-03-26] MEDS ORDERED: Diltiazem 125 MG/25 ML ONE (13:57)
[2018-03-26] MEDS ORDERED: Diltiazem 125 MG in Sodium Chloride 0.9% 100 ML IVPB SCH ×2 (14:00→22:56)
--- NOTE | 2018-03-26 17:58 | HP ---
PRIMARY CARE PHYSICIAN: Dr. Turpin. CHIEF COMPLAINT: I was sent over because my heart rate was too fast. HISTORY OF PRESENT ILLNESS: Mr. Weaver is a pleasant 53-year-old gentleman, who has a history of hypertension as well as alcohol abuse. He says that his problems started a few weeks ago when he said he was going out to check the mail and he stepped into a hole. He says that after stepping in the hole, his foot started to swell and was hurting. He says he continued to try to walk on it for a couple of weeks, but then his mother convinced him to come to the emergency room to have it checked out. He came into the ER and was found to have a distal tibia fracture on the right leg and it was wrapped and he was basically sent home. He says that he started noticing that the leg was swelling, so he took the bandage off and called Dr. Turpin's office for an appointment. He says that during this time, he has had nothing hardly anything to eat. He was having difficulty sleeping due to the pain and he believes this is caused his current symptoms. He says when he went into Dr. Turpin's office, it was noted that his heart rate was in the 180s and his heart rate was irregular and she sent him to the emergency room for evaluation. In the ER, he was found to be in atrial fibrillation with rapid ventricular response and he is being admitted for further evaluation. Also in the ER, they re-splinted the distal fibula fracture. The patient denies any headaches. No dizziness. No shortness of breath. No nausea. No vomiting. No diaphoresis. He has never had anything like this before and he attributes this to "he feels miserable, tired and has not had enough sleep." REVIEW OF SYSTEMS: All systems were reviewed and are negative except for that mentioned in the history of present illness. PAST MEDICAL HISTORY: Significant for alcohol abuse, cerebrovascular accident, hypertension, brain aneurysm, and seizure disorder. He says his last seizure was about 9 months ago. PAST SURGICAL HISTORY: He has had right shoulder repair, bilateral knee surgery and a laparoscopic cholecystectomy. ALLERGIES: NO KNOWN DRUG ALLERGIES. SOCIAL HISTORY: He is . He has one child. He currently dips snuff, but does not smoke. When asked how much he drinks, he says probably too much. When asked to further quantitate this, he says it is typically vodka 5 to 6 drinks, but not every day and occasionally mixed drinks on top of that. FAMILY HISTORY: Significant for heart disease in multiple family members. A brother had atrial fibrillation, coronary artery disease in his mother. CURRENT MEDICATIONS: Include; 1. Amlodipine/benazepril 10/20 once a day. 2. Topiramate 200 mg twice daily. 3. Hydralazine 25 mg twice a day. PHYSICAL EXAMINATION: GENERAL: He is alert and oriented. He appears to be in no acute distress. He is well developed and well nourished. VITAL SIGNS: Blood pressure was 135/108, heart rate 122, respiratory rate of 20, and temperature was 98.6. HEENT: Pupils are equal, round, and reactive. Extraocular muscles are intact. His sclerae are anicteric. Throat, there is no erythema, no exudates. NECK: No adenopathy. No bruits. LUNGS: Clear to auscultation. There was no wheezing, no rales, no rhonchi. CARDIOVASCULAR: His heart rate is irregular. There are no murmurs, no clicks, no rubs. ABDOMEN: Obese, it is soft, it is nontender, nondistended. Positive for bowel sounds. There is no rebound. No guarding. No organomegaly. EXTREMITIES: There is no significant edema in the left leg. On the right lower extremity, there was some trace edema. He has palpable dorsalis pedis pulses bilaterally. NEUROLOGIC: His cranial nerves 2 through 12 are intact. His muscle strength is 5/5 in both his upper and lower extremities. LABORATORY RESULTS: On his EKG, it was an atrial fibrillation and the heart rate in the 170s and then, his white blood cell count was 8.8, hemoglobin 11.8, hematocrit is 37.3, and platelet count is 259. Sodium 141, potassium 3.1, chloride is 109, CO2 is 20, BUN of 8, creatinine 1.0, glucose is 123. The patient also had a CT angiogram of the chest, which was negative for any pulmonary embolism. ASSESSMENT: This is a pleasant 53-year-old gentleman, who presents to the emergency room initially for elevated heart rate. He was found to be in atrial fibrillation with rapid ventricular response. He has been given Lopressor and has been placed on a Cardizem drip. Currently, his heart rate is much improved, it is around in the 80s. He will be admitted to telemetry. We will continue the Cardizem drip, get an echocardiogram and consult Cardiology. 1. Distal fibula fracture, this has already been splinted in the emergency room. He would likely not need any surgery as this is not a weightbearing bone. However, we will go ahead and consult Orthopedic surgery for further recommendations. 2. Hypertension. We will continue Lotrel and place him on p.r.n. medications as needed and place him on DVT prophylaxis. Job ID: [id number]
[2018-03-26] MEDS ORDERED: Metoprolol Tartrate 25 MG TAB ONE (20:32)
[2018-03-26] MEDS ORDERED: Metoprolol Tartrate 25 MG TAB PO SCH (21:00)
[2018-03-26] MEDS ORDERED: Sodium Chloride 0.9% 1,000 ML IV SCH (22:04)
[2018-03-26] MEDS ORDERED: Acetaminophen 325 MG TAB PO PRN (22:56)
[2018-03-26] MEDS ORDERED: HYDROcodone/Acetaminophen 5/325 mg Tablet PO PRN (22:56)
[2018-03-26] MEDS ORDERED: Zolpidem Tartrate 5 MG TAB PO PRN (22:56)
[2018-03-26] MEDS ORDERED: Lorazepam 2 MG/ML VIAL SLOW IVP PRN (22:56)
[2018-03-26] MEDS ORDERED: hydrALAZINE 20 MG/ML VIAL SLOW IVP PRN (22:56)
[2018-03-26 22:57] VITALS: BMI 28.3
[2018-03-26] MEDS ORDERED: Topiramate 100 MG TAB PO SCH (23:15)
[2018-03-26] MEDS ORDERED: Nicotine 14 MG PATCH TD SCH (23:15)
[2018-03-27] MEDS ORDERED: Tamsulosin HCl 0.4 MG CAP PO SCH ×2 (01:15→21:00)
[2018-03-27 05:34] LABS: Anion Gap 10 mmol/L (10-20); BUN (Urea Nitrogen) 7 mg/dL (8.4-25.7); Calc. Creatinine Clearance 116 mL/min (70-130); Calcium 8.6 mg/dL (7.8-10.44); Carbon Dioxide 18 mmol/L (22-29); Chloride 114 mmol/L (98-107); Estimated GFR-MDRD 86; Glucose 97 mg/dL (70-105); Potassium 3.1 mmol/L (3.5-5.1); Sodium 139 mmol/L (136-145)
[2018-03-27 05:58] LABS: Band 1 % (5-11); Eosinophils 1 % (0-10); Hemoglobin 10.2 g/dL (14.0-18.0); Lymphocytes 28 % (21-51); MDiff Complete? YES; Mean Corpuscular HGB CONC 32.4 g/dL (32.0-36.0); Mean Corpuscular Hemoglobin 27.3 pg (27.0-31.0); Mean Corpuscular Volume 84.3 fL (78.0-98.0); Mean Platelet Volume 8.2 fL (7.4-10.4); Monocytes 13 % (0-10); Neutrophil 57 % (42-75); Platelet Count 146 thou/uL (130-400); RBC Distribution Width 16.7 % (11.5-14.5); Red Blood Cell (RBC) Count 3.73 mill/uL (4.70-6.10)
[2018-03-27] MEDS ORDERED: Potassium Chloride 20 MEQ TAB PO SCH (08:45)
[2018-03-27 08:50] LABS: Magnesium 1.4 mg/dL (1.6-2.6)
[2018-03-27 08:56] LABS: Phosphorus 1.8 mg/dL (2.3-4.7)
[2018-03-27] MEDS ORDERED: Aspirin Chewable 81 MG TAB PO SCH ×3 (09:00→13:15)
[2018-03-27] MEDS ORDERED: Enoxaparin Sodium 40 MG/0.4 ML SYRINGE SC SCH (09:00)
[2018-03-27] MEDS ORDERED: Amlodipine 5 mg/Benazepril 10 mg CAP PO SCH (09:00)
[2018-03-27] MEDS ORDERED: Magnesium Sulfate 4 GM in Sodium Chloride 0.9% 250 ML 250 ML IVPB SCH (09:15)
[2018-03-27] MEDS ORDERED: K-Phos Neutral 250 MG TAB PO SCH (09:15)
--- NOTE | 2018-03-27 09:41 | CON ---
DATE OF CONSULTATION: CHIEF COMPLAINT: Right ankle pain. HISTORY OF PRESENT ILLNESS: Mr. Weaver is a 53-year-old male, who was admitted to the hospital last night. The patient was admitted because of atrial fibrillation with RVR. The patient has a history of ankle fracture. He reports stepping in a hole approximately 1 month ago. He rolled his ankle. He was diagnosed with a fibular fracture at that time. He was placed in a splint. He has been in the splint for approximately 1 month. He sees a doctor in [place] for this. Orthopedics was consulted regarding his ankle, given he is in a splint and admitted to the hospital. He is complaining of some ankle pain. He has been nonweightbearing over the last one month. No other injuries. PAST MEDICAL HISTORY: Atrial fibrillation, history of alcohol abuse, history of cerebrovascular accident, hypertension, and seizure disorder. PAST SURGICAL HISTORY: Bilateral knee arthroscopic surgery, history of cholecystectomy, and shoulder arthroscopic surgery. ALLERGIES: NO KNOWN DRUG ALLERGIES. SOCIAL HISTORY: Per the patient's record, he uses tobacco. He also drinks alcohol daily. FAMILY MEDICAL HISTORY: Noncontributory. REVIEW OF SYSTEMS: Positive for right ankle pain. PHYSICAL EXAMINATION: VITAL SIGNS: Temperature is 98.2, pulse is 66, respiratory rate is 20, oxygen saturation 94%, and blood pressure is 121/74. GENERAL: He is alert and oriented, no apparent distress. RESPIRATORY: Breathing comfortably. ABDOMEN: Soft, nontender, and nondistended. MUSCULOSKELETAL: The patient's right ankle splint was removed. His skin is intact. He has resolving ecchymosis and swelling. No significant calf swelling or tenderness. He is able to flex and extend the foot and ankle well. DIAGNOSTIC STUDIES: X-rays from yesterday of the tibia and fibula demonstrate a nondisplaced distal fibular fracture. There is no widening of the medial clear space or syndesmosis. IMPRESSION: Stable right ankle fracture, distal fibula in a patient with atrial fibrillation. PLAN: At this point, the patient will continue his medical treatment as indicated. Regarding his ankle, he will go into a walking boot. He can weight bear as tolerated. He can have the boot on and off for range of motion. He can follow up in the [facility] in approximately 3 weeks for repeat x-ray to check healing and progress. It is fine for him to follow up locally as an alternative. Orthopedics will sign off. Job ID: [id number]
[2018-03-27] MEDS: Topiramate 100 MG TAB PO SCH ×2 (09:44→20:06)
[2018-03-27] MEDS: Metoprolol Tartrate 25 MG TAB PO SCH ×2 (09:44→20:04)
--- NOTE | 2018-03-27 13:42 | CON ---
DATE OF CONSULTATION: REASON FOR CONSULTATION: Atrial fibrillation. HISTORY OF PRESENT ILLNESS: Mr. Weaver is a pleasant 53-year-old gentleman with previous history of brain aneurysm and seizure disorder, who recently presented with atrial fibrillation with RVR. He has a history of alcohol abuse per the chart, although discussing this further with Mr. Weaver, he states he drinks a few times a week. He denies tobacco abuse. No previous history of underlying atrial fibrillation. No chest pain, pressure, or associated symptoms. He was seen and evaluated by Dr. Turpin yesterday with increased heart rate and recommended emergency room visit. He was placed on IV Cardizem and he converted back to sinus rhythm. PAST MEDICAL HISTORY: As described above including hypertension. ALLERGIES: NONE. SOCIAL HISTORY: He is currently . He continues to dip. HOME MEDICATIONS: Include amlodipine/benazepril, topiramate, and hydralazine. REVIEW OF SYSTEMS: Ten-point review of systems is reviewed and as above, negative. PHYSICAL EXAMINATION: GENERAL: Patient is a pleasant 53-year-old, who is in no acute distress. The patient appears their stated age. VITAL SIGNS: Blood pressure 127/79, pulse 80, and temperature 91. NEUROLOGIC: The patient is alert and oriented x3 with no focal neurologic deficits. HEENT: Sclerae without icterus. Mouth has moist mucous membranes with normal pallor. NECK: No JVD. Carotid upstroke brisk. No bruits bilaterally. LUNGS: Clear to auscultation with unlabored respirations. BACK: No scoliosis or kyphosis. CARDIAC: Regular rate and rhythm with normal S1 and S2. No S3 or S4 noted. No significant rubs, murmurs, thrills, or gallops noted throughout the precordium. PMI is not displaced. There is no parasternal heave. ABDOMEN: Soft, nontender, nondistended. No peritoneal signs present. No hepatosplenomegaly. No abnormal striae. EXTREMITIES: 2+ femoral and 2+ dorsalis pedis pulses. No cyanosis, clubbing, or edema. SKIN: No gross abnormalities. PERTINENT LABORATORY DATA: Hemoglobin 10.2, white blood cell count 3.0. Potassium 3.1, phosphorus 1.8, magnesium 1.4. EKG shows atrial fibrillation with RVR, now sinus rhythm. IMPRESSION: 1. Paroxysmal atrial fibrillation. 2. Alcohol abuse. 3. Recent leg fracture. RECOMMENDATIONS: From a CV standpoint, Mr. Weaver appears stable. He is back in sinus rhythm. His CHADS-VASc score is estimated at 1, although he has history of CVA, likely related to his aneurysm and not related to embolization. It would be hesitant to place him on anticoagulation therapy due to history of seizures and a CHADS-VASc score of 1. I have discussed the risks and benefits of anticoagulation therapy versus aspirin. We have opted for aspirin. He states his aneurysm was diagnosed five years ago. He has not had any recent followup. Prior to proceeding with aspirin, may need to have him seen and evaluated by Neurology. Otherwise, I would recommend low-dose beta-eileen therapy. We will discontinue IV Cardizem and add low-dose aspirin. Job ID: [id number]
[2018-03-27] MEDS: K-Phos Neutral 250 MG TAB PO SCH ×3 (13:44→20:28)
[2018-03-27] MEDS: Potassium Chloride 20 MEQ TAB PO SCH (16:35)
--- NOTE | 2018-03-27 17:40 | PDOC.PN ---
- Subjective Encounter Start Date: 03/27/18 Encounter Start Time: 10:00 Patient seen and examined for Afib with RVR - in SR. No CP/Palpitations. No new complaints. No overnight events - Objective Resuscitation Status - Order Detail: 03/26/18 15:17 Resuscitation Status Routine Resuscitation Status: FULL: Full Resuscitation MAR Reviewed: Yes Vital Signs & Weight: Vital Signs (12 hours) Temp Pulse Resp BP BP Pulse Ox 03/27/18 16:00 133/88 03/27/18 15:40 98.0 F 77 14 133/88 98 03/27/18 11:35 98.1 F 80 16 127/79 96 03/27/18 08:15 138/85 03/27/18 08:12 98.0 F 75 16 138/85 99 Weight Weight 195 lb 7 oz I&O: 03/26/18 03/27/18 03/28/18 06:59 06:59 06:59 Intake Total 1275 Output Total 2275 300 Balance -1000 -300 Result Diagrams: 03/27/18 04:58 03/28/18 05:57 Radiology Reviewed by me: Yes (CXR - Neg) EKG Reviewed by me: Yes (Tele SR) Phys Exam - Physical Examination Constitutional: NAD Respiratory: no wheezing, no rales, no rhonchi, clear to auscultation bilateral Cardiovascular: RRR, no rub no heaves/pulsations Gastrointestinal: soft, non-tender, no distention, positive bowel sounds Musculoskeletal: no edema Rt LE boot + Neurological: non-focal, normal sensation, moves all 4 limbs Psychiatric: normal affect, A&O x 3 Dx/Plan - Plan DVT proph w/lovenox, DVT proph w/SCDs 1. Afib with RVR - in SR 2. Rt ankle fracture 3. Electrolyte abn (Hypokalemia, Hypomagnesemia & Hypophosphatemia) 4. Tob dep 5. Chronic Alcohol use 6. Elevated troponins due to demand ischemia 7. Seizure disorder 8. Urinary retention s/p saleem PLAN: Cardizem drip dced Cont Metoprolol Reduce Lotrel dose AM labs Replace electrolytes Ortho/Cardio input appreciated Await Echo On ASA for stroke prophylaxis DC Saleem Review of Systems - Review of Systems Constitutional: negative: fever, chills, sweats, weakness, malaise, other Respiratory: negative: Cough, Dry, Shortness of Breath, Hemoptysis, SOB with Excertion, Pleuritic Pain, Sputum, Wheezing Cardiovascular: negative: chest pain, palpitations, orthopnea, paroxysmal nocturnal dyspnea, edema, light headedness, other Gastrointestinal: negative: Nausea, Vomiting, Abdominal Pain, Diarrhea, Constipation, Melena, Hematochezia, Other - Medications/Allergies Allergies/Adverse Reactions: Allergies Allergy/AdvReac Type Severity Reaction Status Date / Time No Known Allergies Allergy Verified 03/26/18 22:42 Medications: Current Medications Acetaminophen (Tylenol) 650 mg PO Q4H PRN PRN Reason: Headache/Fever/Mild Pain (1-3) Hydrocodone Bitart/Acetaminophen (Britt 5/325) 1 tab PO Q4H PRN PRN Reason: Moderate Pain (4-6) Amlodipine/Benazepril HCl (Lotrel 5/10) 1 cap PO DAILY [facility] Aspirin (Aspirin Chewable) 324 mg PO DAILY [facility] Folic Acid (Folvite) 1 mg PO DAILY [facility] Hydralazine HCl (Apresoline) 10 mg SLOW IVP Q4H PRN PRN Reason: SBP > 180 and HR < 70 Lorazepam (Ativan) 1 mg SLOW IVP Q4H PRN PRN Reason: Anxiety/Agitation Metoprolol Tartrate (Lopressor) 25 mg PO BID [facility] Last Admin: 03/27/18 09:44 Dose: 25 mg Multivitamins (Theragran) 1 tab PO DAILY [facility] Nicotine (Nicoderm Patch) 14 mg TD Q24HR [facility] Phosphorus (Kphos Neutral) 500 mg PO QID-[facility] Last Admin: 03/27/18 13:44 Dose: Not Given Potassium Chloride (K-Dur) 20 meq PO BID-[facility] Last Admin: 03/27/18 16:35 Dose: 20 meq Sodium Chloride (Flush - Normal Saline) 10 ml IVF Q12HR [facility] Last Admin: 03/27/18 09:45 Dose: 10 ml Sodium Chloride (Flush - Normal Saline) 10 ml IVF PRN PRN PRN Reason: Saline Flush Tamsulosin HCl (Flomax) 0.4 mg PO HS [facility] Thiamine HCl (Thiamine) 100 mg PO DAILY [facility] Topiramate (Topamax) 200 mg PO BID [facility] Last Admin: 03/27/18 09:44 Dose: 200 mg Zolpidem Tartrate (Ambien) 5 mg PO HSPRN PRN PRN Reason: Insomnia
[2018-03-27] MEDS ORDERED: Nicotine 14 MG PATCH TD SCH (21:00)
[2018-03-28 05:21] VITALS: TEMP 97.5
[2018-03-28 06:57] LABS: Albumin 3.3 g/dL (3.5-5.0); Anion Gap 10 mmol/L (10-20); BUN (Urea Nitrogen) 6 mg/dL (8.4-25.7); BUN/Creatinine Ratio 6.32; Calc. Creatinine Clearance 110 mL/min (70-130); Calcium 8.4 mg/dL (7.8-10.44); Carbon Dioxide 17 mmol/L (22-29); Chloride 114 mmol/L (98-107); Estimated GFR-MDRD 82; Glucose 97 mg/dL (70-105); Magnesium 1.8 mg/dL (1.6-2.6); Phosphorus 3.1 mg/dL (2.3-4.7); Potassium 3.1 mmol/L (3.5-5.1); Sodium 138 mmol/L (136-145)
[2018-03-28] MEDS: K-Phos Neutral 250 MG TAB PO SCH (08:46)
[2018-03-28] MEDS: Potassium Chloride 20 MEQ TAB PO SCH (08:46)
[2018-03-28] MEDS: Metoprolol Tartrate 25 MG TAB PO SCH (08:47)
[2018-03-28] MEDS ORDERED: Aspirin Chewable 81 MG TAB PO SCH (09:00)
[2018-03-28] MEDS ORDERED: Multivit, Therapeutic 1 TAB PO SCH (09:00)
[2018-03-28] MEDS ORDERED: Amlodipine 5 mg/Benazepril 10 mg CAP PO SCH (09:00)
[2018-03-28] MEDS ORDERED: Folic Acid 1 MG TAB PO SCH (09:00)
[2018-03-28] MEDS: Topiramate 100 MG TAB PO SCH (09:03)
[2018-03-28 09:38] VITALS: BP 118/96
--- NOTE | 2018-03-28 19:45 | DIS ---
DATE OF ADMISSION: 03/26/2018 DATE OF DISCHARGE: 03/28/2018 DISCHARGE DISPOSITION: Home. FOLLOWUP: 1. Follow up with primary care physician, Dr. Turpin in 1 week. 2. Follow up with Cardiology, Dr. Langley in 2 to 3 weeks. 3. Follow up with Dr. Tam Mtz in 2 to 3 weeks. ALLERGIES: NO KNOWN DRUG ALLERGIES. THE PATIENT WAS SEEN ON THE DAY OF DISCHARGE. DENIES ANY NEW COMPLAINTS. NO CHEST PAIN, SHORTNESS OF BREATH, OR PALPITATIONS REPORTED. BASIC METABOLIC PROFILE AFTER 1 WEEK IS RECOMMENDED. PRIMARY CARE PHYSICIAN TO FOLLOW. AN ULTRASOUND OF THE KIDNEY OUTPATIENT IS RECOMMENDED. PRIMARY CARE PHYSICIAN ADVISED TO FOLLOW. DIAGNOSTIC TESTS: Potassium 3.1. Phosphorus 1.8, magnesium 1.4. CT angiogram of the chest was negative for pulmonary embolism. It showed a hypodensity in the superior pole of the right kidney. Nonemergent ultrasound was recommended. Echocardiogram showed left ventricular ejection fraction of 55% to 60% with diastolic dysfunction, mild tricuspid regurgitation, mild mitral regurgitation. The tibia-fibula x-ray on the right showed fracture involving the distal fibula. BRIEF HOSPITAL COURSE: The patient is a 53-year-old male with hypertension and alcoholism, presented to the hospital with palpitations. His workup was consistent with atrial fibrillation with rapid ventricular response, requiring Cardizem drip. He spontaneously converted to sinus rhythm. He has been started on metoprolol. Oral hydralazine has been discontinued. He will continue amlodipine and benazepril at home dose. He was advised to monitor his blood pressure on a daily basis and to maintain a log. He was evaluated by Cardiology. An echocardiogram was obtained that showed ejection fraction 55% to 60% with diastolic dysfunction, mild mitral regurgitation, and mild tricuspid regurgitation. He has been started on aspirin for stroke prophylaxis by Cardiology Service. He understands the risks associated with aspirin use. He also had electrolyte abnormalities, which were replaced. He has a history of recent fall with fibula fracture. He was seen by Orthopedic Service, and boot has been arranged. He will follow up with Orthopedic Service as outpatient. FINAL DIAGNOSES: 1. Atrial fibrillation with rapid ventricular response, spontaneously converted to sinus rhythm. 2. Right ankle fracture, on conservative management. 3. Electrolyte abnormalities (hypokalemia, hypomagnesemia, and hypophosphatemia). 4. Tobacco dependence. The patient was counseled. 5. Chronic alcohol use. The patient was counseled. 6. Elevated troponin secondary to demand ischemia. 7. Seizure disorder. 8. Urinary retention requiring Pal[place] catheter, which was discontinued yesterday. The patient has been voiding well. PLAN: Plan of care was discussed with the patient in detail. He stated understanding. Fall precaution along with tobacco and alcohol cessation was emphasized. Job ID: [id number]
== END 2018-03-28 12:59 | disposition home or self-care (01) | DRG 309 ==
LOC: ERS 13:43 → ERHOLD 15:02 → 2NO 22:18
PROVIDERS: ADMIT Internal Medicine; ATTEND Internal Medicine
DX: I48.0 Paroxysmal atrial fibrillation (principal); I24.8 Other forms of acute ischemic heart disease; I10 Essential (primary) hypertension; F10.10 Alcohol abuse, uncomplicated; G40.909 Epilepsy, unspecified, not intractable, without status epilepticus; X58.XXXA Exposure to other specified factors, initial encounter; Y92.9 Unspecified place or not applicable; S82.831A Other fracture of upper and lower end of right fibula, initial encounter for closed fracture; I08.1 Rheumatic disorders of both mitral and tricuspid valves; E87.6 Hypokalemia; E83.42 Hypomagnesemia; E83.39 Other disorders of phosphorus metabolism; F17.210 Nicotine dependence, cigarettes, uncomplicated; R33.9 Retention of urine, unspecified; Z86.73 Personal history of transient ischemic attack (TIA), and cerebral infarction without residual deficits
CPT/HCPCS: 29515; 36415; 80048; 80069; 83735; 84100; 85025; 93005; 93306; 96365; 96366; 96376; J1650; J3475; J7050

== ENCOUNTER 2020-05-13 11:58 | Inpatient (IN) | payer MEDICARE ==
[2020-05-13 13:19] LABS: #Lymphocytes 0.4 thou/uL (1.20-3.40); #Monocytes 0.3 thou/uL (0.11-0.59); #Neutrophils 5.2 thou/uL (1.40-6.50); %Basophils 0.5 % (0.0-1.0); %Eosinophils 0.1 % (0.0-10.0); %Lymphocytes 7.1 % (21.0-51.0); %Monocytes 5.1 % (0.0-10.0); %Neutrophils 87.2 % (42.0-75.0); Hemoglobin 11.6 g/dL (14.0-18.0); Mean Corpuscular HGB CONC 33.2 g/dL (32.0-36.0); Mean Corpuscular Hemoglobin 25.5 pg (27.0-31.0); Mean Corpuscular Volume 76.8 fL (78.0-98.0); Mean Platelet Volume 9.6 fL (7.4-10.4); Platelet Count 160 thou/uL (130-400); RBC Distribution Width 17.1 % (11.5-14.5); Red Blood Cell (RBC) Count 4.56 mill/uL (4.70-6.10)
[2020-05-13 13:45] LABS: ALT (SGPT) 49 U/L (8-55); AST (SGOT) 65 U/L (5-34); Albumin 3.9 g/dL (3.5-5.0); Alkaline Phosphatase 102 U/L (40-110); Anion Gap 14 mmol/L (10-20); BUN (Urea Nitrogen) 17 mg/dL (8.4-25.7); Bilirubin, Total 1.1 mg/dL (0.2-1.2); Calc. Creatinine Clearance 0 mL/min (70-130); Calcium 8.9 mg/dL (7.8-10.44); Carbon Dioxide 21 mmol/L (22-29); Chloride 107 mmol/L (98-107); Glucose 107 mg/dL (70-105); Potassium 4.6 mmol/L (3.5-5.1); Protein, Total 6.9 g/dL (6.0-8.3); Sodium 137 mmol/L (136-145)
[2020-05-13] MEDS ORDERED: Lorazepam 2 MG/ML VIAL ONE ×2 (14:51→16:11)
[2020-05-13] MEDS ORDERED: Loperamide HCl 2 MG CAP PO PRN (15:40)
[2020-05-13] MEDS ORDERED: Guaifenesin DM 100-10/5 ML UDCUP PO PRN (15:40)
[2020-05-13] MEDS ORDERED: Loratadine 10 MG TAB PO PRN (15:40)
[2020-05-13] MEDS ORDERED: Ondansetron PF 4 MG/2 ML Vial IVP PRN (15:40)
[2020-05-13] MEDS ORDERED: hydrALAZINE 20 MG/ML VIAL SLOW IVP PRN (15:40)
[2020-05-13] MEDS ORDERED: Senokot S 8.6-50 MG TAB PO PRN ×2 (15:40)
[2020-05-13] MEDS ORDERED: Acetaminophen 325 MG TAB PO PRN (15:40)
[2020-05-13] MEDS ORDERED: Ondansetron ODT 4 MG TAB PO PRN (15:40)
[2020-05-13] MEDS ORDERED: Cepastat Lozenges 1 LOZ PO PRN (15:40)
[2020-05-13] MEDS ORDERED: HYDROcodone/Acetaminophen 5/325 mg Tablet PO PRN (15:40)
[2020-05-13] MEDS ORDERED: Sodium Chloride 0.65% Nasal 44 ML BOT EA NARE PRN (15:40)
[2020-05-13] MEDS ORDERED: Bisacodyl 10 MG SUPP PR PRN ×2 (15:40)
[2020-05-13] MEDS ORDERED: Zolpidem Tartrate 5 MG TAB PO PRN ×2 (15:40)
[2020-05-13] MEDS ORDERED: Lorazepam 2 MG/ML VIAL SLOW IVP PRN (15:44)
[2020-05-13] MEDS ORDERED: Multivit, Adult Inj 10 ML VIAL IV SCH (15:45)
[2020-05-13] MEDS ORDERED: Multivitamins, Adult 10 ML in Sodium Chloride 0.9% 500 ML IV SCH (17:30)
[2020-05-13 17:59] LABS: Troponin I 0.077 ng/mL (< 0.028)
[2020-05-13 19:29] VITALS: BMI 27.9
[2020-05-13 22:11] LABS: Troponin I 0.054 ng/mL (< 0.028)
[2020-05-13] MEDS: Famotidine 20 MG TAB PO SCH (23:13)
[2020-05-13] MEDS: Sodium Chloride 0.9% 1,000 ML IV SCH (23:14)
[2020-05-14 01:44] LABS: Amphetamine Not Detected (NotDetected); Barbiturates Screen Not Detected (NotDetected); Benzodiazepine Screen Not Detected (NotDetected); Cocaine Metabolite Screen Not Detected (NotDetected); Medtox Control Line Valid? VALID (VALID); Medtox Reader # READER 1; Methadone Not Detected (NotDetected); Methamphetamine Not Detected (NotDetected); Opiate Screen Not Detected (NotDetected); Oxycodone Screen Not Detected (NotDetected); Phencyclidine (PCP) Not Detected (NotDetected); THC/Cannabinoid Screen Not Detected (NotDetected); Tricyclic Screen Not Detected (NotDetected)
[2020-05-14 05:18] LABS: Eosinophils 1 % (0-10); Hemoglobin 10.8 g/dL (14.0-18.0); Lymphocytes 32 % (21-51); MDiff Complete? YES; Mean Corpuscular HGB CONC 31.5 g/dL (32.0-36.0); Mean Corpuscular Hemoglobin 24.4 pg (27.0-31.0); Mean Corpuscular Volume 77.4 fL (78.0-98.0); Monocytes 10 % (0-10); Neutrophil 57 % (42-75); Platelet Count 146 thou/uL (130-400); Platelet Morphology Comment Appears Adequate; RBC Distribution Width 17.3 % (11.5-14.5); Red Blood Cell (RBC) Count 4.43 mill/uL (4.70-6.10); White Blood Cell (WBC) Count 3.9 thou/uL (4.8-10.8)
[2020-05-14 05:22] LABS: ALT (SGPT) 42 U/L (8-55); AST (SGOT) 57 U/L (5-34); Albumin 3.4 g/dL (3.5-5.0); Alkaline Phosphatase 89 U/L (40-110); Anion Gap 13 mmol/L (10-20); BUN (Urea Nitrogen) 12 mg/dL (8.4-25.7); Bilirubin, Total 1.2 mg/dL (0.2-1.2); Calc. Creatinine Clearance 112 mL/min (70-130); Calcium 8.5 mg/dL (7.8-10.44); Carbon Dioxide 17 mmol/L (22-29); Chloride 109 mmol/L (98-107); Globulin 2.7 g/dL (2.4-3.5); Glucose 102 mg/dL (70-105); Magnesium 1.9 mg/dL (1.6-2.6); Potassium 3.7 mmol/L (3.5-5.1); Protein, Total 6.1 g/dL (6.0-8.3); Sodium 135 mmol/L (136-145)
[2020-05-14 05:39] LABS: Ferritin 42.94 ng/mL (22-322); Thyroid Stimulating Hormone 0.2902 uIU/mL (0.35-4.94)
[2020-05-14 09:10] LABS: SARS-CoV-2 PCR by NAA Not Detected (NotDetected)
[2020-05-14] MEDS: Ferrous Sulfate 325 MG TAB PO SCH (09:53)
[2020-05-14] MEDS: Sodium Chloride 0.9% 1,000 ML IV SCH ×2 (09:53→22:02)
[2020-05-14] MEDS: Famotidine 20 MG TAB PO SCH ×2 (09:53→21:02)
[2020-05-14] MEDS: Enoxaparin Sodium 40 MG/0.4 ML SYRINGE SC SCH (09:53)
[2020-05-14] MEDS ORDERED: Topiramate 100 MG TAB PO SCH (10:45)
[2020-05-14] MEDS ORDERED: Tamsulosin HCl 0.4 MG CAP PO SCH ×2 (10:45→21:00)
[2020-05-14] MEDS ORDERED: Lisinopril 20 MG TAB PO SCH (10:45)
[2020-05-14] MEDS ORDERED: Amlodipine 10 MG TAB PO SCH (10:45)
[2020-05-14] MEDS ORDERED: Magnevist 469MG/ML 20 ML VIAL ONE (11:48)
[2020-05-14] MEDS: levETIRAcetam 500 MG TAB PO SCH (21:01)
[2020-05-14] MEDS: Topiramate 100 MG TAB PO SCH (21:02)
[2020-05-15] MEDS ORDERED: Lisinopril 20 MG TAB PO SCH (09:00)
[2020-05-15] MEDS ORDERED: Amlodipine 10 MG TAB PO SCH (09:00)
[2020-05-15] MEDS ORDERED: Sodium Chloride 0.9% 1,000 ML IV SCH (09:45)
[2020-05-15] MEDS: Ferrous Sulfate 325 MG TAB PO SCH (09:50)
[2020-05-15] MEDS: Enoxaparin Sodium 40 MG/0.4 ML SYRINGE SC SCH (09:51)
[2020-05-15] MEDS: Famotidine 20 MG TAB PO SCH (09:51)
[2020-05-15] MEDS: levETIRAcetam 500 MG TAB PO SCH (09:51)
[2020-05-15] MEDS: Topiramate 100 MG TAB PO SCH (09:52)
[2020-05-15 11:37] VITALS: BP 123/92; TEMP 97.8
[2020-05-15] MEDS: Sodium Chloride 0.9% 1,000 ML IV SCH (11:53)
[2020-05-19 08:15] LABS: Topiramate (Topamax) Test 9.9 ug/mL (2.0-25.0)
== END 2020-05-15 14:32 | disposition home or self-care (01) | DRG 101 ==
LOC: ERS 11:58 → ERHOLD 15:41 → INTOOBSV 15:41 → 2SE 18:30 → OBSVTOIN 05-15 12:53
PROVIDERS: ADMIT Internal Medicine; ATTEND Internal Medicine
DX: G40.909 Epilepsy, unspecified, not intractable, without status epilepticus (principal); Z91.14 Patient's other noncompliance with medication regimen; Z79.82 Long term (current) use of aspirin; N40.0 Benign prostatic hyperplasia without lower urinary tract symptoms; F17.220 Nicotine dependence, chewing tobacco, uncomplicated; F10.10 Alcohol abuse, uncomplicated; I10 Essential (primary) hypertension; D50.9 Iron deficiency anemia, unspecified; Z86.73 Personal history of transient ischemic attack (TIA), and cerebral infarction without residual deficits
CPT/HCPCS: 36415; 51798; 70450; 70553; 80053; 80201; 80306; 82728; 83735; 84146; 84443; 84484; 85025; 87635; 93005; 93306; 95712; 95819; 95957; 96365; 96366; 96372; 96374; 96376; A9579; G0378; J1650; J2060; J7030; U0003; U0005